=== PATIENT | female | born 1945 | race Caucasian/White ===

== ENCOUNTER 2017-02-07 10:19 | Inpatient (IN) | payer MEDICARE ==
[~2017-02-07] VITALS: Ht 165.1 cm; Wt 109.6 kg
[2017-02-07] VITALS (447 sets, daily range): BP systolic 99–108; BP diastolic 59–84; PULSE 81–89; TEMP 98.3–98.7; O2SAT 78–100
[~2017-02-07 10:19] MED LIST: ANUSOL-HC SUPPO25 MG RC; ARICEPT10 MG PO; BETAPACE 80MG80 MG PO; BLINK EYE OP; BLINK OU; COLACE 100100 MG/CAP PO; DIGITEK0.125 MG PO; DULCOLAX S10 MG/SUPP RC; KLONOPIN 0.5MG0.5 MG PO; KLONOPIN 1MG1 MG PO; KLOR-CON M2020 MEQ PO; LASIX 40MG TABL40 MG PO; LEVAQUIN 5500 MG/TA1 PO; NEURONTIN300 MG/CAP PO; NORCO 325 MG-51 TAB PO; NYSTATIN POWDER30 GM TOP; PAXIL 30MG30 MG PO; PRADAXA 150MG150 MG PO; PREDNISONE20 MG PO; PROCTOZONE-HC2.5% TOP; TENORMIN 5050 MG/TAB PO; TYLENOL 325MG325 MG PO; ZESTRIL 10MG10 MG PO; ZESTRIL 5MG5 MG PO; ZYRTEC 10MG10 MG PO; [UNRECOGNIZED DRUG - OTHER] PO
[2017-02-07 10:55] LABS: HEMATOCRIT 43.8 % (37.0-47.0); MEAN CELL VOLUME 101 fl (80.0-100.0); MEAN CORPUSCULAR HEMOGLOBIN 34 pg (27.0-31.0); MEAN CORPUSCULAR HGB CONC 34 g/dl (33.0-37.0); MEAN PLATELET VOLUME 9.1 fl (7.4-10.4); PLATELET COUNT 174 K/mm3 (130-400); RED BLOOD COUNT 4.36 M/mm3 (4.10-5.30); WHITE BLOOD COUNT 9.9 K/mm3 (4.8-10.8)
[2017-02-07 11:10] LABS: C-REACTIVE PROTEIN 2.5 mg/dL (0.0-0.9)
[2017-02-07 11:13] LABS: INR 1.6 (0.8-3.0); PROTHROMBIN TIME 17.4 SECONDS (9.7-12.8)
[2017-02-07 11:16] LABS: PARTIAL THROMBOPLASTIN TIME 66.2 SECONDS (26.0-37.0)
[2017-02-07 11:23] LABS: HYALINE CAST >12 /lpf; PH 5 (5-8); SQUAMOUS EPITHELIAL 0-2 /hpf; URINE APPEARANCE Cloudy; URINE BACTERIA Many /hpf; URINE BILIRUBIN Negative (NEGATIVE); URINE BLOOD 3+ (NEGATIVE); URINE COLOR Amber; URINE GLUCOSE Negative (NEGATIVE); URINE KETONE Negative (NEGATIVE); URINE RBC >50 /hpf; URINE WBC >50 /hpf
[2017-02-07 11:27] LABS: ARTERIAL BLD GAS O2 SATURATION 97.3 % (92-100); ARTERIAL BLD GAS TCO2 CT 21.6; ARTERIAL BLOOD GAS BASE EXCESS -3.4 (-2-2); ARTERIAL BLOOD GAS HCO3 20.5 meq/L (22-26); ARTERIAL BLOOD GAS PO2 105.1 mmHg (80-100); ARTERIAL BLOOD GAS PO2T 105.1 (80-100)
[2017-02-07 11:33] LABS: ALLEN TEST NO; ATS? YES
[2017-02-07 11:53] LABS: ADJUSTED CALCIUM 10.9 mg/dL (8.4-10.2); BILIRUBIN,TOTAL 2.5 mg/dL (0.0-1.0); CALCIUM 10.1 mg/dL (8.4-10.2); CREATININE, serum 2.42 mg/dL (0.52-1.25); POTASSIUM 5.1 mmol/L (3.4-5.0); TOTAL PROTEIN 7.3 gm/dL (6.4-8.2)
[2017-02-07 12:44] LABS: DIGOXIN < 0.4 ng/mL (0.8-2.0)
[2017-02-07] MEDS ORDERED: FERROUS SULFATE65 MG PO (12:46)
[2017-02-07] MEDS ORDERED: MIRTAZAPINE7.5 MG PO (13:14)
[2017-02-07] MEDS ORDERED: PROTONIX 40MG T40 MG PO (13:15)
[2017-02-07] MEDS ORDERED: PROZAC 20MG20 MG PO (13:16)
[2017-02-07] MEDS ORDERED: BETAPACE 80MG80 MG PO (13:17)
[2017-02-07 16:09] LABS: VENOUS BLOOD GAS BE -2.1 (-4-4); VENOUS BLOOD GAS SAO2 77.9 % (60-80)
[2017-02-07 16:10] LABS: VENOUS BLOOD GAS SITE CENTRAL LINE
[2017-02-07 16:16] LABS: SALICYLATE < 1.0 mg/dL
[2017-02-07 16:27] LABS: TROPONIN-I 0.028 ng/mL (0.000-0.034)
[2017-02-07 20:11] LABS: VENOUS BLOOD GAS SAO2 87.3 % (60-80)
[2017-02-07 20:12] LABS: VENOUS BLOOD GAS SITE CENTRAL LINE
[2017-02-08] VITALS (1363 sets, daily range): BP systolic 76–98; BP diastolic 35–61; PULSE 75–86; TEMP 97.5–98.9; O2SAT 77–100
[2017-02-08 05:17] LABS: ARTERIAL BLD GAS O2 SATURATION 96.6 % (92-100); ARTERIAL BLD GAS TCO2 CT 23.6; ARTERIAL BLOOD GAS BASE EXCESS -4.5 (-2-2); ARTERIAL BLOOD GAS HCO3 22.2 meq/L (22-26); ARTERIAL BLOOD GAS PO2 102.5 mmHg (80-100); ARTERIAL BLOOD GAS PO2T 102.5 (80-100); OXYHEMOGLOBIN 95.6 %
[2017-02-08 05:18] LABS: ALLEN TEST YES; ALLENS TEST RESULT PASS; ATS? YES
[2017-02-08 05:58] LABS: ADD PATHOLOGY DIFF REVIEW NO
[2017-02-08 06:02] LABS: HEMATOCRIT 39.4 % (37.0-47.0); MEAN CELL VOLUME 104 fl (80.0-100.0); MEAN CORPUSCULAR HEMOGLOBIN 34 pg (27.0-31.0); MEAN CORPUSCULAR HGB CONC 33 g/dl (33.0-37.0); MEAN PLATELET VOLUME 8.9 fl (7.4-10.4); PLATELET COUNT 163 K/mm3 (130-400); RED BLOOD COUNT 3.79 M/mm3 (4.10-5.30); REDCELL DISTRIBUTION WIDTH-CV 14.8 % (11.5-14.5)
[2017-02-08 06:08] LABS: INR 1.4 (0.8-3.0); PROTHROMBIN TIME 16.2 SECONDS (9.7-12.8)
[2017-02-08 06:10] LABS: PARTIAL THROMBOPLASTIN TIME 53.9 SECONDS (26.0-37.0)
[2017-02-08 06:21] LABS: ADJUSTED CALCIUM 9.8 mg/dL (8.4-10.2); ALBUMIN 2.2 gm/dL (3.5-5.0); BAND 2 % (0-10); BILIRUBIN,TOTAL 2.2 mg/dL (0.0-1.0); CALCIUM 8.4 mg/dL (8.4-10.2); CREATININE, serum 1.08 mg/dL (0.52-1.25); NEUTROPHILS 73 % (42.0-75.2); PLATELET ESTIMATE NORMAL (NORMAL); POTASSIUM 4.4 mmol/L (3.4-5.0); TOTAL CELLS COUNTED 100; TOTAL PROTEIN 5.8 gm/dL (6.4-8.2)
[2017-02-08 20:52] LABS: BASO # 0.1 (0.0-0.2); BASO % 0.9 % (0.0-2.0); EOS # 0.1 (0.0-0.7); EOS % 0.9 % (0-4.0); GRAN # 5.7 (1.4-6.5); GRAN % 76.5 % (42.2-75.2); HEMATOCRIT 34.4 % (37.0-47.0); HEMOGLOBIN 11.1 g/dl (12.5-16.0); LYMPH # 0.6 (1.2-3.4); LYMPH % 8.4 % (20.0-51.0); MEAN CELL VOLUME 106 fl (80.0-100.0); MEAN CORPUSCULAR HEMOGLOBIN 34 pg (27.0-31.0); MEAN CORPUSCULAR HGB CONC 32 g/dl (33.0-37.0); MEAN PLATELET VOLUME 9.1 fl (7.4-10.4); PLATELET COUNT 111 K/mm3 (130-400); RED BLOOD COUNT 3.24 M/mm3 (4.10-5.30); REDCELL DISTRIBUTION WIDTH-CV 14.8 % (11.5-14.5); WHITE BLOOD COUNT 7.5 K/mm3 (4.8-10.8)
[2017-02-08 21:01] LABS: ADJUSTED CALCIUM 9.2 mg/dL (8.4-10.2); ALBUMIN 2.1 gm/dL (3.5-5.0); CALCIUM 7.7 mg/dL (8.4-10.2); CREATININE, serum 1.11 mg/dL (0.52-1.25); MAGNESIUM 1.3 mg/dL (1.6-2.3); POTASSIUM 4.8 mmol/L (3.4-5.0); TOTAL PROTEIN 5.4 gm/dL (6.4-8.2)
[2017-02-08 21:10] LABS: BILIRUBIN,DIRECT 0.7 mg/dL (0.0-0.4); BILIRUBIN,TOTAL 1.4 mg/dL (0.0-1.0)
[2017-02-08 21:13] LABS: TROPONIN-I 0.02 ng/mL (0.000-0.034)
[2017-02-09] VITALS (1416 sets, daily range): BP systolic 95–136; BP diastolic 40–68; PULSE 76–90; TEMP 97.4–98.6; O2SAT 87–100
[2017-02-09 03:22] LABS: ADD PATHOLOGY DIFF REVIEW NO
[2017-02-09 03:25] LABS: MEAN CELL VOLUME 106 fl (80.0-100.0); MEAN CORPUSCULAR HGB CONC 32 g/dl (33.0-37.0); MEAN PLATELET VOLUME 8.9 fl (7.4-10.4); PLATELET COUNT 103 K/mm3 (130-400); RED BLOOD COUNT 3.11 M/mm3 (4.10-5.30); REDCELL DISTRIBUTION WIDTH-CV 14.9 % (11.5-14.5); WHITE BLOOD COUNT 6.1 K/mm3 (4.8-10.8)
[2017-02-09 03:26] LABS: INR 1.4 (0.8-3.0); PROTHROMBIN TIME 15.9 SECONDS (9.7-12.8)
[2017-02-09 03:29] LABS: PARTIAL THROMBOPLASTIN TIME 39.4 SECONDS (26.0-37.0)
[2017-02-09 03:32] LABS: ADJUSTED CALCIUM 9.3 mg/dL (8.4-10.2); ALBUMIN 2.3 gm/dL (3.5-5.0); BILIRUBIN,TOTAL 1.6 mg/dL (0.0-1.0); CALCIUM 7.9 mg/dL (8.4-10.2); CREATININE, serum 0.93 mg/dL (0.52-1.25); HEMATOCRIT 33.1 % (37.0-47.0); HEMOGLOBIN 10.7 g/dl (12.5-16.0); MEAN CORPUSCULAR HEMOGLOBIN 34 pg (27.0-31.0); POTASSIUM 4.6 mmol/L (3.4-5.0); TOTAL PROTEIN 5.5 gm/dL (6.4-8.2)
[2017-02-09 03:40] LABS: BAND 11 % (0-10); BASOPHIL 1 % (0-2); NEUTROPHILS 67 % (42.0-75.2); PLATELET ESTIMATE NORMAL (NORMAL); TOTAL CELLS COUNTED 100
[2017-02-10] VITALS (632 sets, daily range): BP systolic 114–134; BP diastolic 49–76; PULSE 75–92; TEMP 97.9–98.7; O2SAT 92–99
[2017-02-10 05:30] LABS: ADD PATHOLOGY DIFF REVIEW NO
[2017-02-10 05:35] LABS: MEAN CELL VOLUME 105 fl (80.0-100.0); MEAN CORPUSCULAR HGB CONC 32 g/dl (33.0-37.0); PLATELET COUNT 108 K/mm3 (130-400); RED BLOOD COUNT 3.34 M/mm3 (4.10-5.30); REDCELL DISTRIBUTION WIDTH-CV 14.9 % (11.5-14.5); WHITE BLOOD COUNT 6.1 K/mm3 (4.8-10.8)
[2017-02-10 05:42] LABS: HEMATOCRIT 35.2 % (37.0-47.0); HEMOGLOBIN 11.4 g/dl (12.5-16.0); MEAN CORPUSCULAR HEMOGLOBIN 34 pg (27.0-31.0)
[2017-02-10 05:45] LABS: ADJUSTED CALCIUM 9.5 mg/dL (8.4-10.2); ALBUMIN 2.3 gm/dL (3.5-5.0); CALCIUM 8.1 mg/dL (8.4-10.2); CREATININE, serum 0.62 mg/dL (0.52-1.25); POTASSIUM 3.9 mmol/L (3.4-5.0); TOTAL PROTEIN 5.6 gm/dL (6.4-8.2)
[2017-02-10 05:49] LABS: INR 1.3 (0.8-3.0); PROTHROMBIN TIME 14.2 SECONDS (9.7-12.8)
[2017-02-10 05:52] LABS: BAND 6 % (0-10); EOSINOPHIL 5 % (0-4); NEUTROPHILS 69 % (42.0-75.2); PARTIAL THROMBOPLASTIN TIME 35.9 SECONDS (26.0-37.0); PLATELET ESTIMATE DECREASED (NORMAL); TOTAL CELLS COUNTED 100
[2017-02-10 10:53] LABS: MAGNESIUM 1.7 mg/dL (1.6-2.3)
[2017-02-11 01:36] VITALS: BP 109/42; PULSE 78; TEMP 98.5
[2017-02-11 05:11] VITALS: BP 107/54; PULSE 79; TEMP 98
[2017-02-11 10:03] VITALS: BP 147/86; PULSE 82; TEMP 97.1
[2017-02-11 14:14] VITALS: BP 120/66; PULSE 85; TEMP 97.1
[2017-02-11] MEDS ORDERED: IPRATROPIUM BROM3 M1 IH (14:28)
[2017-02-11] MEDS ORDERED: BACTROBAN 22GM22 GM NAS (14:31)
[2017-02-11] MEDS ORDERED: NYSTATIN POWDER30 GM TOP (14:32)
[2017-02-11 16:52] VITALS: BP 116/47; PULSE 88; TEMP 98.3
[2017-02-11 21:07] VITALS: BP 110/52; PULSE 80; TEMP 98.2
[2017-02-12] VITALS (7 sets, daily range): BP systolic 92–120; BP diastolic 42–58; PULSE 77–87; TEMP 97–98.3
[2017-02-12 07:05] LABS: BASO # 0.1 (0.0-0.2); BASO % 0.7 % (0.0-2.0); EOS # 0.7 (0.0-0.7); EOS % 9.1 % (0-4.0); GRAN # 4.8 (1.4-6.5); GRAN % 64.5 % (42.2-75.2); LYMPH % 13.5 % (20.0-51.0); MEAN CELL VOLUME 104 fl (80.0-100.0); MEAN CORPUSCULAR HGB CONC 33 g/dl (33.0-37.0); MEAN PLATELET VOLUME 9.1 fl (7.4-10.4); MONO # 0.9 (0.1-0.6); MONO % 11.8 % (1.7-9.3); PLATELET COUNT 103 K/mm3 (130-400); RED BLOOD COUNT 3.17 M/mm3 (4.10-5.30); WHITE BLOOD COUNT 7.5 K/mm3 (4.8-10.8)
[2017-02-12 07:09] LABS: HEMATOCRIT 32.9 % (37.0-47.0); HEMOGLOBIN 10.9 g/dl (12.5-16.0); MEAN CORPUSCULAR HEMOGLOBIN 34 pg (27.0-31.0)
[2017-02-12 07:20] LABS: CALCIUM 8.4 mg/dL (8.4-10.2); CREATININE, serum 0.52 mg/dL (0.52-1.25); POTASSIUM 3.9 mmol/L (3.4-5.0)
[2017-02-12] MEDS ORDERED: LASIX 20MG TABL20 MG PO (07:49)
[2017-02-12] MEDS ORDERED: IMODIUM A-D2 MG PO (07:50)
[2017-02-12] MEDS ORDERED: OMNICEF 300MG300 MG PO (09:13)
[2017-02-12] MEDS ORDERED: LASIX 40MG TABL40 MG PO (12:42)
[2017-02-13 01:26] VITALS: BP 115/56; PULSE 71; TEMP 97
[2017-02-13 05:00] VITALS: BP 104/51; PULSE 69; TEMP 98
[2017-02-13 07:32] LABS: BASO # 0.1 (0.0-0.2); EOS # 0.6 (0.0-0.7); EOS % 9.9 % (0-4.0); GRAN # 3.6 (1.4-6.5); GRAN % 58.8 % (42.2-75.2); LYMPH % 15.7 % (20.0-51.0); MEAN CELL VOLUME 104 fl (80.0-100.0); MEAN CORPUSCULAR HGB CONC 33 g/dl (33.0-37.0); MEAN PLATELET VOLUME 9.2 fl (7.4-10.4); MONO # 0.9 (0.1-0.6); MONO % 14.1 % (1.7-9.3); PLATELET COUNT 106 K/mm3 (130-400); RED BLOOD COUNT 3.24 M/mm3 (4.10-5.30); REDCELL DISTRIBUTION WIDTH-CV 15.2 % (11.5-14.5)
[2017-02-13 07:40] LABS: HEMATOCRIT 33.6 % (37.0-47.0); HEMOGLOBIN 11.2 g/dl (12.5-16.0); MEAN CORPUSCULAR HEMOGLOBIN 35 pg (27.0-31.0)
[2017-02-13 07:53] LABS: CALCIUM 8.7 mg/dL (8.4-10.2); CREATININE, serum 0.58 mg/dL (0.52-1.25); MAGNESIUM 1.5 mg/dL (1.6-2.3); POTASSIUM 4.1 mmol/L (3.4-5.0)
[2017-02-13 08:27] VITALS: BP 103/40; PULSE 72; TEMP 97
[2017-02-13] MEDS ORDERED: LASIX 40MG TABL40 MG PO (10:50)
[2017-02-13] MEDS ORDERED: OMNICEF 300MG300 MG PO (10:51)
[2017-02-13 14:36] VITALS: BP 105/49; PULSE 77; TEMP 97
== END 2017-02-13 15:45 | DRG 872 ==
LOC: COL.ER 10:19 → ICU 12:57 → COL.ER 12:57 → ICU 12:57 → SURG 02-10 11:30 → ICU 02-10 11:30 → SURG 02-10 11:30
PROVIDERS: Emergency Medicine; Internal Medicine; Internal Medicine Pulmonary Disease; Nurse Practitioner Family; Urology
PROC: 0T768DZ Dilation of Right Ureter with Intraluminal Device, Via Natural or Artificial Opening Endoscopic (ICD-10-PCS; principal; 2017-02-07 16:00)
DX: A41.89 Other specified sepsis (principal); N39.0 Urinary tract infection, site not specified; N20.1 Calculus of ureter; B96.1 Klebsiella pneumoniae [K. pneumoniae] as the cause of diseases classified elsewhere; Z66 Do not resuscitate; I25.10 Atherosclerotic heart disease of native coronary artery without angina pectoris; I48.0 Paroxysmal atrial fibrillation; F03.90 Unspecified dementia, unspecified severity, without behavioral disturbance, psychotic disturbance, mood disturbance, and anxiety; M35.3 Polymyalgia rheumatica; I87.8 Other specified disorders of veins; I87.2 Venous insufficiency (chronic) (peripheral); D69.6 Thrombocytopenia, unspecified; R73.9 Hyperglycemia, unspecified; E87.70 Fluid overload, unspecified; Z95.1 Presence of aortocoronary bypass graft; Z95.0 Presence of cardiac pacemaker
CPT/HCPCS: 99231-AI; 99232-AI; 99233-AI; 99239; A9284; C1751; C1769; C1894; C2617; J0696; J1265; J1644; J1720; J1815; J1940; J2250; J2405; J2543; J2704; J3010; J3475; J7030; J7040; J7050; J7060; J7120; P9047; Q9967

== ENCOUNTER 2017-04-21 23:59 | Inpatient (IN) | payer MEDICARE ==
[~2017-04-21] VITALS: Ht 162.6 cm; Wt 107.3 kg
[~2017-04-21 23:59] MED LIST changes: +BACTROBAN 22GM22 GM NAS; +FERROUS SULFATE65 MG PO; +IMODIUM A-D2 MG PO; +IPRATROPIUM BROM3 M1 IH; +LASIX 20MG TABL20 MG PO; +MIRTAZAPINE7.5 MG PO; +OMNICEF 300MG300 MG PO; +PROTONIX 40MG T40 MG PO; +PROZAC 20MG20 MG PO
[2017-04-22] VITALS (533 sets, daily range): BP systolic 111–140; BP diastolic 55–86; PULSE 94–102; TEMP 97.1–98.2; O2SAT 79–100
[2017-04-22] MEDS ORDERED: ALDACTONE 25MG25 M1 PO (00:57)
[2017-04-22] MEDS ORDERED: COLACE 100100 MG/CAP PO (00:59)
[2017-04-22] MEDS ORDERED: KLOR-CON SPRIN10 MEQ PO (01:05)
[2017-04-22] MEDS ORDERED: MILK OF MA400 MG/52 PO (01:08)
[2017-04-22] MEDS ORDERED: PERCOCET 325 MG1 TA2 PO (01:10)
[2017-04-22 01:37] LABS: HEMATOCRIT 22.4 % (37.0-47.0)
[2017-04-22 08:30] LABS: MEAN CELL VOLUME 104 fl (80.0-100.0); MEAN CORPUSCULAR HGB CONC 31 g/dl (33.0-37.0); MEAN PLATELET VOLUME 9.3 fl (7.4-10.4); PLATELET COUNT 196 K/mm3 (130-400); RED BLOOD COUNT 2.61 M/mm3 (4.10-5.30); REDCELL DISTRIBUTION WIDTH-CV 20.4 % (11.5-14.5); WHITE BLOOD COUNT 11.3 K/mm3 (4.8-10.8)
[2017-04-22 08:32] LABS: HEMATOCRIT 27.1 % (37.0-47.0); HEMOGLOBIN 8.4 g/dl (12.5-16.0); MEAN CORPUSCULAR HEMOGLOBIN 32 pg (27.0-31.0)
[2017-04-22 08:33] LABS: ADD PATHOLOGY DIFF REVIEW NO
[2017-04-22 08:58] LABS: CALCIUM 8.3 mg/dL (8.4-10.2); CREATININE, serum 0.83 mg/dL (0.52-1.25); POTASSIUM 4.5 mmol/L (3.4-5.0)
[2017-04-22 09:09] LABS: BAND 1 % (0-10); NEUTROPHILS 92 % (42.0-75.2); TOTAL CELLS COUNTED 100
[2017-04-22 09:10] LABS: ANISOCYTOSIS 3+; HYPOCHROMIA 1+; POLYCHROMASIA 1+; TROPONIN-I 0.031 ng/mL (0.000-0.034)
[2017-04-22 09:11] LABS: PLATELET ESTIMATE NORMAL (NORMAL)
[2017-04-22 13:31] LABS: HEMATOCRIT 24.9 % (37.0-47.0); HEMOGLOBIN 7.9 g/dl (12.5-16.0)
[2017-04-22 19:18] LABS: HEMATOCRIT 22.9 % (37.0-47.0); HEMOGLOBIN 7.2 g/dl (12.5-16.0)
[2017-04-23] VITALS (197 sets, daily range): BP systolic 100–141; BP diastolic 45–89; PULSE 86–99; TEMP 97.5–98.9; O2SAT 78–100
[2017-04-23 05:47] LABS: BASO % 0.2 % (0.0-2.0); EOS % 0.1 % (0-4.0); GRAN # 14.7 (1.4-6.5); GRAN % 83.4 % (42.2-75.2); HEMATOCRIT 22.2 % (37.0-47.0); HEMOGLOBIN 7.1 g/dl (12.5-16.0); LYMPH # 1.6 (1.2-3.4); LYMPH % 8.8 % (20.0-51.0); MEAN CELL VOLUME 105 fl (80.0-100.0); MEAN CORPUSCULAR HEMOGLOBIN 33 pg (27.0-31.0); MEAN CORPUSCULAR HGB CONC 32 g/dl (33.0-37.0); MEAN PLATELET VOLUME 9.7 fl (7.4-10.4); MONO # 1.1 (0.1-0.6); MONO % 6.1 % (1.7-9.3); PLATELET COUNT 178 K/mm3 (130-400); RED BLOOD COUNT 2.12 M/mm3 (4.10-5.30); REDCELL DISTRIBUTION WIDTH-CV 22.1 % (11.5-14.5); WHITE BLOOD COUNT 17.6 K/mm3 (4.8-10.8)
[2017-04-23 05:56] LABS: CALCIUM 8.4 mg/dL (8.4-10.2); CREATININE, serum 0.92 mg/dL (0.52-1.25); POTASSIUM 4.5 mmol/L (3.4-5.0)
[2017-04-23 17:39] LABS: HEMOGLOBIN 6.8 g/dl (12.5-16.0)
[2017-04-23 17:40] LABS: HEMATOCRIT 21.4 % (37.0-47.0)
[2017-04-23 22:03] LABS: HEMATOCRIT 25.5 % (37.0-47.0); HEMOGLOBIN 8.3 g/dl (12.5-16.0)
[2017-04-24 02:14] VITALS: BP 113/55; PULSE 78; TEMP 98.3
[2017-04-24 07:30] VITALS: BP 114/49; PULSE 77; TEMP 97.6
[2017-04-24 08:08] LABS: CALCIUM 8.3 mg/dL (8.4-10.2); CREATININE, serum 0.82 mg/dL (0.52-1.25); POTASSIUM 3.8 mmol/L (3.4-5.0)
[2017-04-24 08:15] LABS: BASO % 0.2 % (0.0-2.0); GRAN % 89.3 % (42.2-75.2); LYMPH # 0.9 (1.2-3.4); LYMPH % 5.1 % (20.0-51.0); MEAN CELL VOLUME 103 fl (80.0-100.0); MEAN CORPUSCULAR HGB CONC 32 g/dl (33.0-37.0); MEAN PLATELET VOLUME 9.7 fl (7.4-10.4); MONO # 0.7 (0.1-0.6); MONO % 4.4 % (1.7-9.3); PLATELET COUNT 177 K/mm3 (130-400); RED BLOOD COUNT 2.52 M/mm3 (4.10-5.30); REDCELL DISTRIBUTION WIDTH-CV 22.2 % (11.5-14.5); WHITE BLOOD COUNT 16.7 K/mm3 (4.8-10.8)
[2017-04-24 08:25] LABS: HEMOGLOBIN 8.2 g/dl (12.5-16.0); MEAN CORPUSCULAR HEMOGLOBIN 33 pg (27.0-31.0)
[2017-04-24 11:38] VITALS: BP 104/44; PULSE 77; TEMP 98.3
[2017-04-24 15:05] VITALS: BP 104/46; PULSE 79; TEMP 97.8
[2017-04-24 22:05] VITALS: BP 117/72; PULSE 88; TEMP 98.4
[2017-04-25 04:51] VITALS: BP 109/55; PULSE 98; TEMP 98.3
[2017-04-25 06:35] LABS: ADD PATHOLOGY DIFF REVIEW NO
[2017-04-25 06:42] LABS: MEAN CELL VOLUME 102 fl (80.0-100.0); MEAN CORPUSCULAR HGB CONC 32 g/dl (33.0-37.0); MEAN PLATELET VOLUME 9.8 fl (7.4-10.4); PLATELET COUNT 171 K/mm3 (130-400); RED BLOOD COUNT 2.51 M/mm3 (4.10-5.30); REDCELL DISTRIBUTION WIDTH-CV 21.1 % (11.5-14.5); WHITE BLOOD COUNT 18.2 K/mm3 (4.8-10.8)
[2017-04-25 06:45] LABS: HEMATOCRIT 25.7 % (37.0-47.0); HEMOGLOBIN 8.2 g/dl (12.5-16.0); MEAN CORPUSCULAR HEMOGLOBIN 33 pg (27.0-31.0)
[2017-04-25 07:28] VITALS: BP 147/78; PULSE 92; TEMP 97.9
[2017-04-25 07:40] LABS: BAND 6 % (0-10); NEUTROPHILS 85 % (42.0-75.2); TOTAL CELLS COUNTED 100
[2017-04-25 07:41] LABS: POLYCHROMASIA 1+
[2017-04-25 07:42] LABS: ANISOCYTOSIS 1+
[2017-04-25] MEDS ORDERED: FERROUS SU325 MG/TAB PO (10:03)
[2017-04-25] MEDS ORDERED: CEFTIN 250250 MG/TAB PO (10:03)
[2017-04-25] MEDS ORDERED: PROTONIX 40MG T40 MG PO (10:03)
[2017-04-25] MEDS ORDERED: ZOFRAN 4MG T4 MG/TAB PO (10:26)
[2017-04-25 12:21] VITALS: BP 108/48; PULSE 83; TEMP 98
[2017-04-25 14:45] VITALS: BP 108/48; PULSE 83; TEMP 98
== END 2017-04-25 16:08 | DRG 377 ==
LOC: ICU 23:59 → IMCU 23:59 → MEDICAL 04-23 15:50
PROVIDERS: Family Medicine; Internal Medicine; Internal Medicine Gastroenterology; Nurse Practitioner Family; Surgery
PROC: 0DC78ZZ Extirpation of Matter from Stomach, Pylorus, Via Natural or Artificial Opening Endoscopic (ICD-10-PCS; 2017-04-22)
PROC: 0DB68ZX Excision of Stomach, Via Natural or Artificial Opening Endoscopic, Diagnostic (ICD-10-PCS; principal; 2017-04-22 11:30)
DX: K25.4 Chronic or unspecified gastric ulcer with hemorrhage (principal); A41.9 Sepsis, unspecified organism; D62 Acute posthemorrhagic anemia; I50.32 Chronic diastolic (congestive) heart failure; N39.0 Urinary tract infection, site not specified; Z66 Do not resuscitate; I11.0 Hypertensive heart disease with heart failure; J44.9 Chronic obstructive pulmonary disease, unspecified; I48.91 Unspecified atrial fibrillation; I27.2 Other secondary pulmonary hypertension; G30.9 Alzheimer's disease, unspecified; F02.80 Dementia in other diseases classified elsewhere, unspecified severity, without behavioral disturbance, psychotic disturbance, mood disturbance, and anxiety; M35.3 Polymyalgia rheumatica
CPT/HCPCS: 99223-AI; 99232-AI; 99233-AI; 99239; C1751; C9113; J0696; J1644; J2250; J2405; J2920; J3010; J7030; J7512; P9016